=== PATIENT | female | born 1965 | race Hispanic/Latino ===

== ENCOUNTER 2018-09-18 17:25 | Emergency (ER) | payer BC ==
[2018-09-18 17:37] VITALS: RESP 18
[2018-09-18] MEDS ORDERED: Sodium Chloride 0.9% 1,000 ML IV STA (18:20)
--- NOTE | 2018-09-18 18:35 | ED PDOC ---
HPI: Chest Pain Time Seen by Provider: 09/18/18 18:03 Chief Complaint (Nursing): Chest Pain Chief Complaint (Provider): Chest Pain History Per: Patient History/Exam Limitations: no limitations Onset/Duration Of Symptoms: Intermittent Episodes (x2 days) Current Symptoms Are (Timing): Still Present Additional Complaint(s): 53 year old female with pmHx of HCL, presents to ED with a complaint of left- sided shoulder pain that radiates across chest into right shoulder inte rmittently since yesterday. She reports additional dull back pain with symptoms exacerbated upon movement and palpitation. Otherwise, she denies shortness of breath, nausea, vomiting, diarrhea, headache, weakness, long-distance traveling, heavy lifting, taking pain medication for relief, falls, injuries, leg pain, leg swelling, control use, or hormone treatments. PCP: Dr. Fernando Marquez Past Medical History Reviewed: Historical Data, Nursing Documentation, Vital Signs Vital Signs: Last Vital Signs Temp 98.5 F 09/18/18 17:36 Pulse 120 H 09/18/18 17:36 Resp 18 09/18/18 17:36 BP 158/83 H 09/18/18 17:36 Pulse Ox 98 09/18/18 17:36 - Medical History PMH: Hypercholesterolemia - Surgical History Surgical History: No Surg Hx - Family History Family History: States: Unknown Family Hx - Immunization History Hx Tetanus Toxoid Vaccination: No Hx Influenza Vaccination: No Hx Pneumococcal Vaccination: No - Home Medications Home Medications: Ambulatory Orders Medication Instructions Recorded Atorvastatin Calcium [Lipitor] 10 mg PO DAILY 07/31/15 Ibuprofen [Motrin] 600 mg PO TID 7 Days tab 09/18/18 - Allergies Allergies/Adverse Reactions: Allergies Allergy/AdvReac Type Severity Reaction Status Date / Time No Known Allergies Allergy Verified 09/18/18 17:35 Review of Systems ROS Statement: Except As Marked, All Systems Reviewed And Found Negative Cardiovascular: Positive for: Chest Pain (left to right) Respiratory: Negative for: Shortness of Breath Gastrointestinal: Negative for: Nausea, Vomiting, Diarrhea Musculoskeletal: Positive for: Shoulder Pain (left to right), Back Pain. Negative for: Leg Pain (or swelling) Neurological: Negative for: Weakness, Headache Physical Exam - Reviewed Nursing Documentation Reviewed: Yes Vital Signs Reviewed: Yes - Physical Exam Appears: Positive for: Non-toxic, No Acute Distress Head Exam: Positive for: ATRAUMATIC, NORMAL INSPECTION, NORMOCEPHALIC Skin: Positive for: Normal Color Eye Exam: Positive for: Normal appearance, EOMI, PERRL ENT: Positive for: Normal ENT Inspection. Negative for: Pharyngeal Erythema Neck: Positive for: Normal, Painless ROM, Supple Cardiovascular/Chest: Positive for: Regular Rate, Rhythm, Other (upper right and left lateral chest tenderness). Negative for: Chest Non Tender Respiratory: Positive for: Normal Breath Sounds. Negative for: Wheezing, Respiratory Distress Pulses-Radial (L): 3+/4+ Pulses-Radial (R): 3+/4+ Gastrointestinal/Abdominal: Positive for: Normal Exam, Soft. Negative for: Tenderness Back: Positive for: Normal Inspection. Negative for: L CVA Tenderness, R CVA Tenderness Extremity: Positive for: Normal ROM (upper/lower. neurovascularly intact). Negative for: Pedal Edema, Calf Tenderness Neurologic/Psych: Positive for: Alert, Oriented (x3). Negative for: Motor/Sensory Deficits - Laboratory Results Result Diagrams: 09/18/18 18:20 09/18/18 18:20 Lab Results: no acute - ECG ECG: Positive for: Interpreted By Me, Viewed By [facility] ECG Rhythm: Positive for: Sinus Tachycardia (mild) O2 Sat by Pulse Oximetry: 98 (RA) Pulse Ox Interpretation: Normal - Radiology X-Ray: Interpreted by Me, Viewed By [facility] X-Ray Interpretation: No Acute Disease - Progress ED Course And Treament: 2019: Stable. AAOx3. Pain free. Tolerated PO. Fu with pcp. HR elevation likely from pain. Pt. has had similar pain multiple times in the past. Medical Decision Making Medical Decision Making: Time: 1814 Initial Plan: * EKG * Labs with ddimer * CXR * IV fluids * Toradol 15mg IVP Scribe Attestation: Documented by Elyssa Tate, acting as a scribe for Wei Reyes MD. Provider Scribe Attestation: All medical record entries made by the Scribe were at my direction and personally dictated by me. I have reviewed the chart and agree that the record accurately reflects my personal performance of the history, physical exam, medical decision making, and the department course for this patient. I have also personally directed, reviewed, and agree with the discharge instructions and disposition. Disposition - Clinical Impression Clinical Impression: Chest wall pain - Patient ED Disposition Is Patient to be Admitted: No Counseled Patient/Family Regarding: Studies Performed, Diagnosis, Need For Followup, Rx Given - Disposition Referrals: [facility] [Outside] - 09/21/18 Disposition: Routine/Home Disposition Time: 20:20 Condition: STABLE Additional Instructions: Return if not better in 3 days. Prescriptions: Ibuprofen [Motrin] 600 mg PO TID 7 Days tab Instructions: Chest Pain That Is Not Caused by the Heart (DC) Forms: [facility] (Maltese), [facility] School/Work Excuse
[2018-09-18 18:44] LABS: BASO # 0.1 K/uL (0.0-0.2); EOS # 0.2 K/uL (0.0-0.7); EOS % 1.5 % (0.0-4.0); HEMOGLOBIN 13.7 g/dL (12.0-16.0); LYMPH # 3.5 K/uL (1.0-4.3); MEAN CELL VOLUME 82.2 fl (81.0-99.0); MEAN CORPUSCULAR HGB CONC 32.9 g/dL (33.0-37.0); MEAN PLATELET VOLUME 7.6 fl (7.2-11.7); MONO # 0.7 K/uL (0.0-0.8); NEUT # 6.1 K/uL (1.8-7.0); NEUT % 57.5 % (50.0-75.0); RBC 5.07 Mil/uL (3.80-5.20); RED CELL DISTRIBUTION WIDTH 14.3 % (11.5-14.5); WHITE BLOOD COUNT 10.6 K/uL (4.8-10.8)
[2018-09-18 18:50] LABS: PROTHROMBIN TIME 11.6 Seconds (9.8-13.1)
[2018-09-18 18:54] LABS: ALB/GLOB RATIO 1.2 (1.0-2.1); ALBUMIN 4.9 g/dL (3.5-5.0); ALT/SGPT 34 U/L (9-52); AST/SGOT 27 U/L (14-36); BLOOD UREA NITROGEN 13 mg/dl (7-17); CALCIUM 10.2 mg/dL (8.4-10.2); D DIMER < 200 ng/mlDDU (0-230); GFR NON-AFRICAN AMERICAN > 60
[2018-09-18 23:39] VITALS: BP 127/83; PULSE 87; TEMP 98.3; O2SAT 100
--- NOTE | 2018-09-19 11:26 | CARD ---
APPROVED REPORT Date of service: 09/18/2018 EKG Measurement Heart [id number] <Conclusion> Sinus tachycardia Otherwise normal ECG
--- NOTE | 2018-09-19 12:09 | RAD ---
Date of service: 09/18/2018 HISTORY: Chest pain COMPARISON: 05/18/2015. TECHNIQUE: Chest PA and lateral FINDINGS: LUNGS: No active pulmonary disease. PLEURA: No significant pleural effusion identified. No pneumothorax apparent. CARDIOVASCULAR: No aortic atherosclerotic calcification present. Normal cardiac size. No pulmonary vascular congestion. OSSEOUS STRUCTURES: No significant abnormalities. VISUALIZED UPPER ABDOMEN: Normal. OTHER FINDINGS: None. IMPRESSION: No active disease. No significant interval change compared to the prior examination(s). Concordant results with the preliminary interpretation rendered by the emergency department physician procedure.
== END 2018-09-18 21:07 | disposition home or self-care (01) ==
LOC: H.ER 17:25
DX: R07.89 Other chest pain (principal); E78.00 Pure hypercholesterolemia, unspecified
CPT/HCPCS: 71046; 80053; 84484; 85025; 85378; 85610; 85730; 93005; 96361; 96374; 99284; J1885; J7030